=== PATIENT | male | born 1985 | race Caucasian/White ===

== ENCOUNTER 2024-08-11 18:53 | Emergency (ER) | payer OTHER ==
[~2024-08-11] VITALS: Ht 185.4 cm; Wt 97.5 kg
[2024-08-11] MEDS ORDERED: Ketorolac Tromethamine 30 MG/ML VIAL IM ONE (19:30)
[2024-08-11] MEDS ORDERED: methylPREDNISolone sod succ 125 MG VIAL IM ONE (19:30)
[2024-08-11 19:44] LABS: BILIRUBIN Negative (Negative); BLOOD Negative (Negative); CLARITY Turbid (Clear); COLOR Yellow (Yellow); GLUCOSE Negative (Negative); KETONE Trace (Negative); LEUKO ESTERASE 2+ (Negative); NITRITE Negative (Negative); PH 5.5 (4.5-8.0); SPECIFIC GRAVITY >= 1.030 (1.001-1.030)
[2024-08-11 19:51] LABS: BACTERIA 2+; CALCIUM OXALATE CRYSTALS 1+; MUCOUS 2+; WBC 31-40 wbc/hpf (0-5)
[2024-08-11] MEDS ORDERED: CYCLOBENZAPRINE5 M3 PO (20:16)
[2024-08-11] MEDS ORDERED: CIPRO500 MG PO (20:16)
[2024-08-11] MEDS ORDERED: METRONIDAZOLE 500 MG TAB PO ONE (20:20)
[2024-08-11] MEDS ORDERED: Water, Sterile 10 ML VIAL ONE (20:49)
== END 2024-08-11 20:24 | disposition home or self-care (01) ==
LOC: ED 18:53
PROVIDERS: Physician Assistant Medical
DX: A59.03 Trichomonal cystitis and urethritis (principal); N39.0 Urinary tract infection, site not specified; M62.830 Muscle spasm of back; Z98.890 Other specified postprocedural states

== ENCOUNTER 2024-10-05 10:00 | Emergency (ER) | payer OTHER ==
[~2024-10-05] VITALS: Ht 185.4 cm; Wt 99.8 kg
[~2024-10-05 10:00] MED LIST: CIPRO500 MG PO; CYCLOBENZAPRINE5 M3 PO
[2024-10-05] MEDS ORDERED: Metoclopramide Hydrochloride 10 MG/2 ML VIAL IV ONE (10:30)
[2024-10-05] MEDS ORDERED: Ketorolac Tromethamine 15 MG/ML VIAL IV ONE (10:30)
[2024-10-05] MEDS ORDERED: SODIUM CHLORIDE 0.9% 1,000 ML IV ONE (10:30)
[2024-10-05] MEDS ORDERED: diphenhydrAMINE hydrochloride 50 MG/ML VIAL IV ONE (10:30)
[2024-10-05 10:51] LABS: BASO % 0.5 % (0.0-1.0); EOS # 0.4 10*3/uL (0.0-0.4); EOS % 4.4 % (1.0-4.0); HEMATOCRIT 43.5 % (42.0-52.0); MEAN CORPUSCULAR HGB CONC 33.3 g/dl (33.0-37.0); MEAN PLATELET VOLUME 9.8 fl (9.6-12.3); MONO # 0.5 10*3/uL (0.1-1.0); MONO % 5.4 % (3.0-9.0); NEUT # 5.8 10*3/uL (2.3-7.9); PLATELET COUNT AUTOMATED 258 10*3/uL (130-400); RED BLOOD COUNT 4.53 10*6/uL (4.50-5.90); RED CELL DISTRI WIDTH 12.7 % (0-14.5); WHITE BLOOD COUNT 8.3 10*3/uL (4.8-10.8)
[2024-10-05 11:20] LABS: BUN 15 mg/dl (9-23); CHLORIDE 108 mmol/L (98-107); POTASSIUM 4.2 mmol/L (3.4-5.1)
[2024-10-05] MEDS ORDERED: REGLAN10 M1 PO (11:53)
[2024-10-05] MEDS ORDERED: IBU800 M2 PO (11:53)
[2024-10-05] MEDS ORDERED: AVPAK AZITHROM250 M1 PO (11:54)
== END 2024-10-05 12:01 | disposition home or self-care (01) ==
LOC: ED 10:00
PROVIDERS: Emergency Medicine
DX: J32.9 Chronic sinusitis, unspecified (principal); R51.9 Headache, unspecified; R42 Dizziness and giddiness; M25.512 Pain in left shoulder; H53.8 Other visual disturbances; Z98.890 Other specified postprocedural states